=== PATIENT | male | born 1960 | race Caucasian/White ===

== ENCOUNTER 2016-12-25 09:22 | Emergency (ER) | payer SELFPAY ==
[~2016-12-25] VITALS: Ht 175.3 cm; Wt 75.0 kg
[~2016-12-25 09:22] MED LIST: MOTRIN 800800 MG/TAB PO; PROZAC40 MG PO
[2016-12-25 09:27] VITALS: BP 141/78; PULSE 98; TEMP 98.4
[2016-12-25] MEDS ORDERED: NORCO 325 MG-51 TAB PO (10:05)
[2016-12-25] MEDS ORDERED: FLEXERIL 1010 MG/TAB PO (10:05)
== END 2016-12-25 10:53 | disposition home or self-care (01) ==
LOC: COL.ER 09:22
DX: M62.830 Muscle spasm of back (principal); M54.2 Cervicalgia; F17.210 Nicotine dependence, cigarettes, uncomplicated; Z98.890 Other specified postprocedural states
CPT/HCPCS: J1885; J2360

== ENCOUNTER 2021-02-09 18:21 | Inpatient (IN) | payer SELFPAY ==
[~2021-02-09] VITALS: Ht 175.3 cm; Wt 68.9 kg
[~2021-02-09 18:21] MED LIST changes: +FLEXERIL 1010 MG/TAB PO; +NORCO 325 MG-51 TAB PO
[2021-02-09 19:03] LABS: BASO % 0.5 % (0.0-2.0); GRAN # 3.1 K/mm3 (1.4-6.5); GRAN % 71.3 % (42.2-75.2); HEMATOCRIT 41.1 % (42.0-52.0); HEMOGLOBIN 14.4 g/dl (13.5-18.0); LYMPH # 0.6 K/mm3 (1.2-3.4); LYMPH % 14.2 % (20.0-51.0); MEAN CELL VOLUME 84 fl (80.0-100.0); MEAN CORPUSCULAR HEMOGLOBIN 29 pg (27.0-31.0); MEAN CORPUSCULAR HGB CONC 35 g/dl (33.0-37.0); MEAN PLATELET VOLUME 10.1 fl (7.4-10.4); MONO # 0.6 K/mm3 (0.1-0.6); MONO % 12.8 % (1.7-9.3); PLATELET COUNT 222 K/mm3 (130-400); RED BLOOD COUNT 4.89 M/mm3 (4.20-5.60); REDCELL DISTRIBUTION WIDTH-CV 13.2 % (11.5-14.5)
[2021-02-09 19:20] LABS: ALBUMIN 2.8 gm/dL (3.4-4.8); BILIRUBIN,TOTAL 0.6 mg/dL (0.2-1.2); C-REACTIVE PROTEIN 13.18 mg/dL (0.00-0.50); CALCIUM 8.4 mg/dL (8.4-10.2); CREATININE, serum 1.09 mg/dL (0.72-1.25); POTASSIUM 4.4 mmol/L (3.5-4.5); TOTAL PROTEIN 6.2 gm/dL (6.2-8.1)
[2021-02-09 19:30] LABS: TROPONIN-I 0.096 ng/mL (0.00-0.033)
[2021-02-09 21:17] LABS: ARTERIAL BLD GAS O2 SATURATION 94.2 % (92-100); ARTERIAL BLD GAS TCO2 CT 17.5; ARTERIAL BLOOD GAS BASE EXCESS -4.9 (-2-2); ARTERIAL BLOOD GAS HCO3 16.7 meq/L (22-26); ARTERIAL BLOOD GAS PCO2 24.1 mmHg (35-45); ARTERIAL BLOOD GAS PO2 69.2 mmHg (80-100); ARTERIAL BLOOD GAS pH 7.46 (7.35-7.45)
[2021-02-09 22:19] LABS: INR 1.4 (0.8-3.0); PROTHROMBIN TIME 15.5 SECONDS (9.7-12.8)
[2021-02-09] MEDS ORDERED: ADVILINFCONC PO (22:55)
--- NOTE | 2021-02-10 00:06 | NUR ---
Patient arrived medical floor room 302 around 2200 from ER. Patient A/Ox4. Patient denies chest pain, SOB, headache, dizziness, N/V or diarrhea. Patient currently on room air. Breathing even and unlabored. No acute distress noted. Oriented patient to the room. Ice water and sandwitch box provided. IVF started per JUN. Call light in reach. Will continue to monitor.
[2021-02-10 01:00] LABS: COLLECTION METHOD CLEAN CATCH
[2021-02-10 01:09] LABS: PH 7 (5-8); SQUAMOUS EPITHELIAL 0-2 /hpf; URINE APPEARANCE Clear; URINE BACTERIA None Seen /hpf; URINE BILIRUBIN Negative (NEGATIVE); URINE BLOOD Negative (NEGATIVE); URINE COLOR Yellow; URINE GLUCOSE Negative (NEGATIVE); URINE KETONE Negative (NEGATIVE); URINE LEUKOCYTE ESTERASE Negative (NEGATIVE); URINE NITRATE Negative (NEGATIVE); URINE PROTEIN(semi-quant) Negative (NEGATIVE); URINE RBC 0-2 /hpf
[2021-02-10 02:02] VITALS: BP 97/45; PULSE 62; TEMP 98.1
[2021-02-10 06:48] LABS: HEMATOCRIT 37.2 % (42.0-52.0); HEMOGLOBIN 12.8 g/dl (13.5-18.0); MEAN CELL VOLUME 85 fl (80.0-100.0); MEAN CORPUSCULAR HEMOGLOBIN 29 pg (27.0-31.0); MEAN CORPUSCULAR HGB CONC 34 g/dl (33.0-37.0); MEAN PLATELET VOLUME 10.3 fl (7.4-10.4); PLATELET COUNT 198 K/mm3 (130-400); RED BLOOD COUNT 4.36 M/mm3 (4.20-5.60); REDCELL DISTRIBUTION WIDTH-CV 13.3 % (11.5-14.5)
[2021-02-10 07:01] LABS: ALBUMIN 2.3 gm/dL (3.4-4.8); BILIRUBIN,TOTAL 0.4 mg/dL (0.2-1.2); CALCIUM 8.6 mg/dL (8.4-10.2); CREATININE, serum 0.9 mg/dL (0.72-1.25); POTASSIUM 3.7 mmol/L (3.5-4.5); TOTAL PROTEIN 5.5 gm/dL (6.2-8.1)
[2021-02-10 07:46] LABS: BAND 11 % (0-10); EOSINOPHIL 1 % (0-4); LYMPHOCYTE 22 % (20.0-51.0); METAMYELOCYTE 1 % (0-0); NEUTROPHILS 55 % (42.0-75.2); PLATELET ESTIMATE NORMAL (NORMAL)
[2021-02-10 08:38] VITALS: BP 105/57; PULSE 55; TEMP 98
--- NOTE | 2021-02-10 10:35 | NUR ---
PT ALERT AND ORIENTED. PT HAS CLEAR LUNGS TO AUSCULTATION, PT CURRENTLY ON ROOM AIR. PT REPORTS HAVING RECENT THOUGHTS OF WANTING TO OR NOT WAKE UP AND HURTING SELF. PT DENIES HAVING INTENT OR PLAN AT THIS TIME. PT STATES HAVING SUPPORT OF SON AND FRIENDS. PT HAS ACTIVE BOWEL SOUNDS, NON-TENDER TO PALPATION. PT PULSES 2+ IN ALL EXTREMITIES. PT DENIES PAIN AT THIS TIME. PT CALL LIGHT WITHIN REACH, NO OTHER NEEDS EXPRESSED AT THIS TIME.
--- NOTE | 2021-02-10 10:59 | NUR ---
PT SON CALLED FOR UPDATE, VERIFIED OKAY TO GIVE INFORMATION WITH PATIENT. PASSWORD GIVEN FOR FUTURE UPDATES. PT UPDATE GIVE TO BEST OF ABILITY, PT VISITED WITH SON.
[2021-02-10 11:15] VITALS: BP 95/74; PULSE 72; TEMP 98.8
--- NOTE | 2021-02-10 13:15 | NUR ---
NOTIFIED OF ECHO RESULTS RESULTING IN CHART AND RESULTS OF EX OX.
--- NOTE | 2021-02-10 14:54 | NUR ---
NOTIFIED DR. BALLARD OF PHYSICAL THERAPY ASSESSMENT AND SUGGESTION OF BENEFITS TO STAYING EXTRA NIGHT. RECEIVED VERBAL INSTRUCTIONS TO CONTINUE TO MONITOR OVERNIGHT AND REASSESS IN AM.
--- NOTE | 2021-02-10 14:56 | NUR ---
The patient is COVID positive. MERARY contacted the patient's room phone to discuss discharge plan. The patient lives alone in [place]. He reports independence with ADLs and does not have any DME. He works for [employer]. The patient does not have a PCP. He confirms that he is self pay. MERARY informed him of [facility] in [place]. The patient was interested in getting set up there. MERARY contacted Danya at [facility] and secured the patient an appointment there on Sunday, 02/22, at 1300. MERARY notified the community educator. MERARY will need to fax the patient's records to [facility] at [phone]. The patient receives his medications at [facility]. He reports that he has not had any difficulties affording his meds, but is unsure if he will upon discharge. SW to flowers his meds at [facility] prior to dc. MERARY consulted financial counseling. The patient does not have a DPOA-HC and he was not interested in completing one at this time. He states that he is not and that he has one child: Oscar Feliz. He believes Oscar lives in [place], [place]. The patient states that he is having difficulties with his cell phone right now and is unable to provide MERARY with Oscar's phone number. He requests that MERARY contact his friend, Darwin (ph#[phone]), and then have Darwin contact their boss, Chalino Lorenzana. He reports that Chalino will have his son's phone number. The patient plans to return home upon discharge. MERARY to continue to monitor. Darwin then contacted the medical unit. The community educator transferred Darwin to MERARY. Darwin reports that he will reach out to Chalino to get Oscar's phone number and the contact MERARY back. *Discharge plan: home*
[2021-02-10 16:16] VITALS: BP 105/60; PULSE 65; TEMP 98.7
--- NOTE | 2021-02-10 16:47 | NUR ---
Pt continuing on plan of care. Pt vital signs remained stable, able to continue on room air for this shift. Pt states having pain when walking from lying down so long. Pt denied pain during q4 pain assessments. Pt able to express needs, visited with son this shift.
[2021-02-10 17:14] VITALS: TEMP 99.2
--- NOTE | 2021-02-10 17:14 | NUR ---
PT STATES SWEATING AND CHILLS, TEMPERATURE RETAKEN AT THIS TIME, 99.2 ORALLY.
[2021-02-10 19:57] VITALS: BP 111/51; PULSE 54; TEMP 98.1
[2021-02-11 00:28] VITALS: BP 91/54; PULSE 71; TEMP 97.6
[2021-02-11 05:07] VITALS: BP 120/65; PULSE 58; TEMP 98.3
[2021-02-11 06:41] LABS: HEMOGLOBIN 12.6 g/dl (13.5-18.0); MEAN CELL VOLUME 86 fl (80.0-100.0); MEAN CORPUSCULAR HEMOGLOBIN 30 pg (27.0-31.0); MEAN CORPUSCULAR HGB CONC 34 g/dl (33.0-37.0); MEAN PLATELET VOLUME 10.1 fl (7.4-10.4); PLATELET COUNT 246 K/mm3 (130-400); RED BLOOD COUNT 4.27 M/mm3 (4.20-5.60); REDCELL DISTRIBUTION WIDTH-CV 13.6 % (11.5-14.5)
[2021-02-11 06:46] LABS: HEMATOCRIT 36.9 % (42.0-52.0)
[2021-02-11 07:00] LABS: ALBUMIN 2.2 gm/dL (3.4-4.8); BILIRUBIN,TOTAL 0.3 mg/dL (0.2-1.2); CALCIUM 8.8 mg/dL (8.4-10.2); CREATININE, serum 0.78 mg/dL (0.72-1.25); POTASSIUM 3.4 mmol/L (3.5-4.5); TOTAL PROTEIN 5.5 gm/dL (6.2-8.1)
[2021-02-11 07:51] VITALS: BP 104/65; PULSE 67; TEMP 98.1
[2021-02-11 08:01] LABS: BAND 9 % (0-10); LYMPHOCYTE 13 % (20.0-51.0); NEUTROPHILS 71 % (42.0-75.2); PLATELET ESTIMATE NORMAL (NORMAL)
--- NOTE | 2021-02-11 08:20 | NUR ---
The patient's udoqtf-ke-awc, Maricruz, arrived at the hospital. She did not realize the patient could not have visitors. MERARY asked Maricruz if she had Oscar's phone number. She provided MERARY with Oscar's phone number [phone].
--- NOTE | 2021-02-11 10:01 | NUR ---
PT RESTING IN BED. MORNING MEDICATIONS GIVEN. SHIFT ASSESSMENT COMPLETED. DENIES ANY NEEDS. O2 SATURATION LOW, PLACED ON 3L NC. STRESSED ABOUT BEING HERE AND REQUIRING OXYGEN. WILL CONTINUE TO MONITOR.
[2021-02-11 11:29] VITALS: BP 116/74; PULSE 73; TEMP 98.1
[2021-02-11 16:00] VITALS: BP 119/71; PULSE 70; TEMP 98.4
[2021-02-11 20:55] VITALS: BP 121/64; PULSE 61; TEMP 97.8
[2021-02-12 05:44] VITALS: BP 113/69; PULSE 54; TEMP 98.1
--- NOTE | 2021-02-12 05:45 | NUR ---
Awake, alert, oriented x 4, able to make needs known, denies pain, O@2.5L per min via NC, in use, call rosenthal w/i reach.
[2021-02-12 06:38] LABS: HEMATOCRIT 37.1 % (42.0-52.0); HEMOGLOBIN 12.6 g/dl (13.5-18.0); MEAN CELL VOLUME 85 fl (80.0-100.0); MEAN CORPUSCULAR HEMOGLOBIN 29 pg (27.0-31.0); MEAN CORPUSCULAR HGB CONC 34 g/dl (33.0-37.0); MEAN PLATELET VOLUME 10.3 fl (7.4-10.4); PLATELET COUNT 336 K/mm3 (130-400); RED BLOOD COUNT 4.35 M/mm3 (4.20-5.60); REDCELL DISTRIBUTION WIDTH-CV 13.7 % (11.5-14.5)
[2021-02-12 07:00] LABS: ALBUMIN 2.3 gm/dL (3.4-4.8); BILIRUBIN,TOTAL 0.4 mg/dL (0.2-1.2); CALCIUM 8.6 mg/dL (8.4-10.2); CREATININE, serum 0.83 mg/dL (0.72-1.25); TOTAL PROTEIN 5.7 gm/dL (6.2-8.1)
[2021-02-12 07:05] LABS: BAND 11 % (0-10); LYMPHOCYTE 14 % (20.0-51.0); METAMYELOCYTE 1 % (0-0); NEUTROPHILS 68 % (42.0-75.2); PLATELET ESTIMATE NORMAL (NORMAL)
--- NOTE | 2021-02-12 07:30 | NUR ---
REPORT RECIEVED FROM JB. PT RESTING IN BED. NO SIGNS OR SYMPTOMS OF DISTRESS. NO COMPLAINTS AT THIS TIME. [facility].
[2021-02-12 09:09] VITALS: BP 114/58; PULSE 58; TEMP 97.6
--- NOTE | 2021-02-12 10:01 | NUR ---
ASSESSMENT COMPLETE. NO SIGNS OR SYMPTOMS OF DISTRESS. PT RESTING IN BED. DENIES WANTING BREAKFAST. GENERAL TRAY ORDERED. PT STATES HE IS NOT FEELING LIKE HIMESELF YET AND FEELS UNDER THE WEATHER. HOWEVER, HE IS ALSO ASKING TO GO HOME. UPDATED ON CONCERNS. CALL LIGHT WITHIN REACH
[2021-02-12 11:53] VITALS: BP 120/64; PULSE 59; TEMP 97.7
[2021-02-12 17:03] VITALS: BP 116/70; PULSE 79; TEMP 99.3
[2021-02-12 20:13] VITALS: BP 132/77; PULSE 52; TEMP 97.7
[2021-02-13 05:28] VITALS: BP 134/75; PULSE 59; TEMP 98.3
[2021-02-13 07:05] LABS: HEMATOCRIT 37.3 % (42.0-52.0); HEMOGLOBIN 12.6 g/dl (13.5-18.0); MEAN CELL VOLUME 88 fl (80.0-100.0); MEAN CORPUSCULAR HEMOGLOBIN 30 pg (27.0-31.0); MEAN CORPUSCULAR HGB CONC 34 g/dl (33.0-37.0); MEAN PLATELET VOLUME 10.3 fl (7.4-10.4); PLATELET COUNT 366 K/mm3 (130-400); RED BLOOD COUNT 4.23 M/mm3 (4.20-5.60); REDCELL DISTRIBUTION WIDTH-CV 13.9 % (11.5-14.5)
[2021-02-13 07:26] LABS: ALBUMIN 2.2 gm/dL (3.4-4.8); BILIRUBIN,TOTAL 0.4 mg/dL (0.2-1.2); CALCIUM 8.5 mg/dL (8.4-10.2); CREATININE, serum 0.82 mg/dL (0.72-1.25); TOTAL PROTEIN 5.3 gm/dL (6.2-8.1)
[2021-02-13 08:26] VITALS: BP 113/68; PULSE 74; TEMP 98.3
[2021-02-13 09:38] LABS: LYMPHOCYTE 14 % (20.0-51.0); MYELOCYTE 1 % (0-0); NEUTROPHILS 75 % (42.0-75.2); NUCLEATED RED BLOOD CELL 1 (0-6)
[2021-02-13 09:40] LABS: PLATELET ESTIMATE NORMAL (NORMAL)
--- NOTE | 2021-02-13 10:48 | NUR ---
Patient in bed upon entering the room. Patient told this RN he will be leaving tomorrow according to the hospitalist, and that he is holding him to this. This RN will collaborate with RT to work to lower the patient's O2 from 3L. Overall, patient does not have any concerns/complaints at this time. Patient is independent in his room and has his call light and phone within reach.
[2021-02-13 11:52] VITALS: BP 106/59; PULSE 61; TEMP 98.1
[2021-02-13 15:56] VITALS: BP 104/66; PULSE 63; TEMP 98.2
--- NOTE | 2021-02-13 18:15 | NUR ---
Patient has done well today and has not had any concerns or complaints. Patient is independent in his room and calls if anything is needed. Patient refused supper tonight as he has leftover fruit that he wanted to eat from breakfast and lunch.
[2021-02-13 20:52] VITALS: BP 123/71; PULSE 56; PULSE 96; TEMP 97.9
--- NOTE | 2021-02-13 23:34 | NUR ---
Patient alert and oriented. Patient denies any pain or discomfort. Denies SOB, N/V or diarrhea. Patient states feeling much better and ready to go home tomorrow. Patient currently on 3L oxygen via NC. Breathing even and unlabored. All scheduled meds given per JUN. Call light in reach. Will continue to monitor.
[2021-02-14] VITALS (7 sets, daily range): BP systolic 97–135; BP diastolic 56–77; PULSE 51–108; TEMP 97.6–98.8
--- NOTE | 2021-02-14 06:00 | NUR ---
Patient remains on oxygen 3L via NC over the night. No acute respiratory distress noted throughout the night. Call light in reach.
[2021-02-14 07:00] LABS: HEMATOCRIT 39.5 % (42.0-52.0); HEMOGLOBIN 13.4 g/dl (13.5-18.0); MEAN CELL VOLUME 87 fl (80.0-100.0); MEAN CORPUSCULAR HEMOGLOBIN 30 pg (27.0-31.0); MEAN CORPUSCULAR HGB CONC 34 g/dl (33.0-37.0); MEAN PLATELET VOLUME 10.1 fl (7.4-10.4); PLATELET COUNT 368 K/mm3 (130-400); RED BLOOD COUNT 4.53 M/mm3 (4.20-5.60); REDCELL DISTRIBUTION WIDTH-CV 13.7 % (11.5-14.5)
[2021-02-14 07:20] LABS: ALBUMIN 2.4 gm/dL (3.4-4.8); BILIRUBIN,TOTAL 0.5 mg/dL (0.2-1.2); CALCIUM 8.7 mg/dL (8.4-10.2); CREATININE, serum 0.83 mg/dL (0.72-1.25); POTASSIUM 3.9 mmol/L (3.5-4.5); TOTAL PROTEIN 5.9 gm/dL (6.2-8.1)
[2021-02-14 08:04] LABS: PATHOLOGY DIFF REVIEW OK
[2021-02-14 08:40] LABS: BAND 1 % (0-10); LYMPHOCYTE 16 % (20.0-51.0); METAMYELOCYTE 2 % (0-0); NEUTROPHILS 76 % (42.0-75.2); PLATELET ESTIMATE NORMAL (NORMAL)
--- NOTE | 2021-02-14 08:48 | NUR ---
Patient laying in bed upon entering the room. Patient was increased from 3L of O2 to 4L and tolerating it well. Patient is expecting to be discharged. This RN told him the hospitalist would be in to make this decision.
--- NOTE | 2021-02-14 16:00 | NUR ---
Barrel Bander collaborated with RT who advised patient is requiring 7 liters of oxygen with ambulation. Patient will not discharge today.
--- NOTE | 2021-02-14 18:23 | NUR ---
Patient voiced being depressed today as he was expecting to discharge. Patient feels extremely isolated and just wants to have someone to talk to. This RN spent approx. 20mins in the room just talking to the patient and giving him time to vent. Patient felt much better after this. Patient is hopeful that he will discharge tomorrow.
--- NOTE | 2021-02-14 20:14 | NUR ---
Patient in bed and having dinner upon enter the room. Patient alert and oriented. Patient denies any pain, SOB, N/V or diarrhea. Patient states, "I am fine. I don't know why I am still here". Patient currently on 5L oxygen via NC. VS stable. No acute respiratory distress noted. All scheduled meds given per JUN. Call light in reach. Will continue to monitor.
[2021-02-15 03:06] VITALS: BP 109/55; PULSE 55; TEMP 98.3
--- NOTE | 2021-02-15 05:06 | NUR ---
Patient remains on 5L oxygen over the night. Patient drank 2 cans of Sprite last night. Patient c/o heartburn around 2300. Patient denies chest pain. PRN Maalox and PRN Pepcid given for heart burn with immediate relieve. Call light in reach. Will continue to monitor.
[2021-02-15 06:40] LABS: HEMATOCRIT 40.7 % (42.0-52.0); HEMOGLOBIN 13.8 g/dl (13.5-18.0); MEAN CELL VOLUME 86 fl (80.0-100.0); MEAN CORPUSCULAR HEMOGLOBIN 29 pg (27.0-31.0); MEAN CORPUSCULAR HGB CONC 34 g/dl (33.0-37.0); MEAN PLATELET VOLUME 9.9 fl (7.4-10.4); PLATELET COUNT 394 K/mm3 (130-400); RED BLOOD COUNT 4.73 M/mm3 (4.20-5.60); REDCELL DISTRIBUTION WIDTH-CV 13.4 % (11.5-14.5)
[2021-02-15 07:05] LABS: CREATININE, serum 0.72 mg/dL (0.72-1.25); POTASSIUM 3.9 mmol/L (3.5-4.5)
[2021-02-15 07:16] LABS: BAND 6 % (0-10); LYMPHOCYTE 25 % (20.0-51.0); METAMYELOCYTE 4 % (0-0); NEUTROPHILS 53 % (42.0-75.2); PLATELET ESTIMATE NORMAL (NORMAL)
[2021-02-15 08:30] VITALS: BP 113/68; PULSE 61; TEMP 97.9
--- NOTE | 2021-02-15 09:11 | NUR ---
PT UP TO BATHROOM TO HAVE BM, WHILE ON STOOL PT HAD BLOODY NOSE AND REMOVED CANULA TO USE TISSUE. PT THEN BACK TO BED, O2 SATS 78% WHEN BACK TO BED. PUT PATIENT BACK ON 10 L HUMIDIFIED HIGH FLOW NC TO RETURN SATS TO 90%. PT DOES NOT APPEAR TO BE IN DISTRESS AT THIS TIME. WILL TITRATE O2 WHEN OXYGEN NEEDS DECREASE.
[2021-02-15 12:09] VITALS: BP 100/64; PULSE 53; TEMP 97.8
[2021-02-15 15:59] VITALS: BP 100/55; PULSE 57; TEMP 97.7
--- NOTE | 2021-02-15 18:10 | NUR ---
Pt's mood improving this afternoon. Pt had ensure shake and was ready to eat dinner. 100% was ate this evening. Last dose of Remdesivir administered. 02 saturation maintaining in mid 90's on 8 L high flow NC. Call light within reach.
[2021-02-15] MEDS ORDERED: TOPROL XL 25MG25 MG PO (18:14)
[2021-02-15 20:43] VITALS: BP 107/52; PULSE 55; TEMP 98.5
[2021-02-16 00:53] VITALS: BP 114/64; PULSE 53; TEMP 98
[2021-02-16 05:20] VITALS: BP 111/70; PULSE 56; TEMP 98.5
--- NOTE | 2021-02-16 06:00 | NUR ---
PT WEANED DOWN TO 1L THIS NIGHT. THIS NURSE SPENT MUCH TIME DISCUSSING PRONING, BED EXERCISES AND PURPOSE OF WEANING WITH PT. PT MOTIVATED TO APPLY TEACHINGS AND EAGER TO DC. ALL NEEDS MET THIS NIGHT. CALL LIGHT WITHIN REACH.
--- NOTE | 2021-02-16 07:00 | NUR ---
Report received from SARAH Mendez. PT in bed resting, will cnontinue to elen.
[2021-02-16 08:04] VITALS: BP 92/58; PULSE 54; TEMP 98.3
--- NOTE | 2021-02-16 09:00 | NUR ---
Assessment charted. Pt in bed resting, c/o not being "out of here yet when he was told he was leaving". Discussed how we need doctor to see him and determine if he is safe for discharge. Pt agreeable to this plan. Will continue to monitor.
[2021-02-16] MEDS ORDERED: PROAIR HFA0.09 MG/AC IH (10:28)
[2021-02-16] MEDS ORDERED: LIPITOR 40MG TA40 MG PO (10:29)
[2021-02-16] MEDS ORDERED: DECADRON6 MG PO (10:29)
[2021-02-16] MEDS ORDERED: ASPI325T6 PO (10:30)
[2021-02-16] MEDS ORDERED: OXYGEN (10:32)
[2021-02-16 12:31] VITALS: BP 106/67; PULSE 60; TEMP 98
--- NOTE | 2021-02-16 13:00 | NUR ---
Patient is ready for discharge today and will require 4 liters of continuous oxygen. MERARY faxed referral and orders to [facility] as patient is self pay. MERARY spoke with Chioma who advised oxygen would be ready at 1400 for pick up man. MERARY spoke with patient about a Financial Assistance Application and provided it in patient's discharge packet. MERARY coordinated with patient's friend, Camacho (ph#[phone]) about pick up man for the oxygen. Camacho will pick up man patient's oxygen at 1400 then pick up man patient directly after. MERARY updated patient and patient's RN. MERARY faxed discharge information to [facility]. Discharge Plan: Home
--- NOTE | 2021-02-16 15:40 | NUR ---
Pt discharged via w/c with myself and 02 at 4L. Taught friend and pt how to use home 02 tank that was completely disassembled, assembled and got it going and education rpovided. Pt taken down by myself and BREWMASTER who acted as "clean person". INT dc'd, reviewed dishcargep acket, scripts, isolation precautions and recommendations. Pt friend picked him up and will drive home. Criteria met.
== END 2021-02-16 15:30 | disposition home or self-care (01) | DRG 177 ==
LOC: COL.ER 18:21 → MEDICAL 19:59
PROVIDERS: Nurse Practitioner; Nurse Practitioner Family; ADMIT Student in an Organized Health Care Education/Training Program
PROC: XW033E5 Introduction of Remdesivir Anti-infective into Peripheral Vein, Percutaneous Approach, New Technology Group 5 (ICD-10-PCS; principal; 2021-02-11)
PROC: 5A0935A Assistance with Respiratory Ventilation, Less than 24 Consecutive Hours, High Flow/Velocity Cannula (ICD-10-PCS; 2021-02-15)
DX: U07.1 COVID-19 (principal); J96.01 Acute respiratory failure with hypoxia; E87.2 Acidosis; E87.1 Hypo-osmolality and hyponatremia; F32.A Depression, unspecified; F41.9 Anxiety disorder, unspecified; F17.210 Nicotine dependence, cigarettes, uncomplicated; J44.9 Chronic obstructive pulmonary disease, unspecified
CPT/HCPCS: 99222-AI; 99232-AI; 99233-AI; 99239; G0378; J1650; J7030; J7050; J7120; J8540; Q9967